=== PATIENT | male | born 1985 | race Caucasian/White ===

== ENCOUNTER 2021-09-12 10:23 | Outpatient (REF) | payer BC, SELFPAY ==
[2021-09-12 11:36] LABS: MANUAL DIFF FLAG NO
[2021-09-12 11:43] LABS: Basophils Percent Auto 0.3 % (0-2); Eosinophils Absolute Auto 0.1 X10*3/uL (0.0-0.4); Eosinophils Percent Auto 2.1 % (0-4); Hematocrit 43.4 % (42.0-52.0); Hemoglobin 15.2 g/dl (14.0-18.0); Imm Gran Abs Auto 0.02 X10*3/uL (0.00-0.03); Imm Gran Pct Auto 0.3 % (0.0-0.4); Lymphocytes Percent Auto 31.1 % (20-40); Mean Corpuscular Hemoglobin 29.7 pg (27.0-33.0); Mean Corpuscular Volume 84.9 fL (80.0-98.0); Mean Platelet Volume 10.4 fL (9.4-12.4); Monocytes Absolute Auto 0.5 X10*3/uL (0.1-1.2); Monocytes Percent Auto 7.6 % (2-11); Neutrophils Absolute Auto 3.7 x10*3/uL (2.0-8.3); Neutrophils Percent Auto 58.6 % (45-73); Platelet Count 170 X10*3/uL (160-400); Red Blood Count 5.11 X10*6/uL (4.60-5.80); Red Cell Distribution Width 12.3 % (11.0-16.0); White Blood Count 6.3 X10*3/uL (4.8-10.8)
[2021-09-12 12:11] LABS: Alanine Aminotransferase 56 U/L (0-40); Albumin Level 4.3 g/dL (3.5-5.0); Alkaline Phosphatase 68 U/L (39-117); Anion Gap 10 (12-20); Aspartate Amino Transferase 30 U/L (5-37); Bilirubin Total 1.3 mg/dL (0.0-1.0); Blood Urea Nitrogen 15 mg/dL (9-16); Calcium 9.4 mg/dL (8.4-10.2); Carbon Dioxide 28 mmol/L (22-29); Chloride 103 mmol/L (96-108); Cholesterol 210 mg/dL; Estimated Glomerular Filt Rate > 60; Glucose Fasting 90 mg/dL (60-99); HDL Cholesterol 36 mg/dL; LDL Cholesterol Calculated 132 mg/dl; Potassium 4.5 mmol/L (3.3-5.1); Sodium 136 mmol/L (135-145); Total Protein 7.1 g/dL (6.5-8.0); Triglycerides 210 mg/dL
[2021-09-12 12:32] LABS: Thyroid Stimulating Hormone 0.77 uIU/mL (0.32-4.0)
[2021-09-16 14:47] LABS: Testosterone, Free 60.8 pg/mL (35.0-155.0); Testosterone, Total 360 ng/dL (250-1100)
== END 2021-09-12 10:24 | disposition home or self-care (01) ==
LOC: HO.HMGCLDS 10:23
PROVIDERS: PCP Internal Medicine; Visit Provider Internal Medicine
DX: Z00.00 Encounter for general adult medical examination without abnormal findings (principal); K58.0 Irritable bowel syndrome with diarrhea; R53.83 Other fatigue
CPT/HCPCS: 36415; 80053; 80061; 84402; 84403; 84443; 85025

== ENCOUNTER → 2022-03-17 08:39 | Outpatient (BNVA) | payer BC, SELFPAY | PROVIDERS: PCP Internal Medicine; Visit Provider Orthopaedic Surgery | DX: G56.02 Carpal tunnel syndrome, left upper limb (principal); R20.0 Anesthesia of skin; R20.2 Paresthesia of skin | CPT/HCPCS: 20526; J1100 ==

== ENCOUNTER 2022-09-10 07:39 | Day surgery (SDC) | payer BC, SELFPAY ==
--- NOTE | 2022-07-01 13:03 | HO.ANESPROP2 ---
HPI - Anesthesia Eval Consult details Narrative: 37yo M for Colonoscopy PMFSH Active Problems Active Problems: All Active Problems (Updated 07/01/22 @ 12:45 by Amparo Ochoa, RN) Carpal tunnel syndrome of left wrist (Acute) Numbness and tingling in right hand (Acute) Past Medical History Medical History (Updated 07/01/22 @ 12:45 by Amparo Ochoa, RN) Anxiety IBS (irritable bowel syndrome) Sleep apnea Surgical History Surgical History (Updated 07/01/22 @ 12:46 by Amparo Ochoa RN) History of tonsillectomy and adenoidectomy Hx of colonoscopy Social History Social History Current occupational status: employed Current occupation: left hand /construction Meds Allergies Allergy/AdvReac Type Severity Reaction Status Date / Time Seasonal Allergies Allergy Mild Itchy Eyes Verified 03/17/22 08:55 Home Medications Medication Instructions Recorded Confirmed Last Taken Type bupropion HCl 150 mg 24 hr tablet, 150 mg PO QAM 03/17/22 Unknown History extended release Exam Exam Date and Time: July 01, 2022 1303 Assessment and Plan Assessment Anesthesia Assessment: Chart Reviewed
--- NOTE | 2022-09-09 12:28 | P.CONAN_ITS ---
Documented by User: Dee Batista NP 09/09/22 12:29 HPI - Anesthesia Eval Consult details Narrative: 37yo M for Colonoscopy [facility] Active Problems Active Problems: All Active Problems (Updated 07/01/22 @ 12:45 by Amparo Ochoa RN) Carpal tunnel syndrome of left wrist (Acute) Numbness and tingling in right hand (Acute) Past Medical History Medical History (Updated 07/01/22 @ 12:45 by Amparo Ochoa RN) Anxiety IBS (irritable bowel syndrome) Sleep apnea Surgical History Surgical History (Updated 07/01/22 @ 12:46 by Amparo Ochoa RN) History of tonsillectomy and adenoidectomy Hx of colonoscopy Social History Social History Advance Directives: No Advance Directives Information Provided: Yes Current occupational status: employed Current occupation: left hand /construction Meds Allergies Allergy/AdvReac Type Severity Reaction Status Date / Time Seasonal Allergies Allergy Mild Itchy Eyes Verified 03/17/22 08:55 Home Medications Medication Instructions Recorded Confirmed Last Taken Type bupropion HCl 300 mg 24 hr tablet, 1 tab PO QAM 09/09/22 09/09/22 Unknown History extended release Exam Exam Date and Time: September 09, 2022 1228 Assessment and Plan Assessment Anesthesia Assessment: Chart Reviewed Documented by User: Arabella Ortiz MD 09/10/22 08:41 [facility] Past Medical History Medical History (Updated 07/01/22 @ 12:45 by Amparo Ochoa RN) Anxiety IBS (irritable bowel syndrome) Sleep apnea Family History Family history of problems with anesthesia: No Surgical History Surgical History (Updated 07/01/22 @ 12:46 by Amparo Ochoa RN) History of tonsillectomy and adenoidectomy Hx of colonoscopy History of Problems with Anesthesia: No Social History Social History Advance Directives: No Advance Directives Information Provided: Yes Current occupational status: employed Current occupation: left hand /construction Meds Allergies Allergy/AdvReac Type Severity Reaction Status Date / Time Seasonal Allergies Allergy Mild Itchy Eyes Verified 03/17/22 08:55 Home Medications Medication Instructions Recorded Confirmed Last Taken Type bupropion HCl 300 mg 24 hr tablet, 1 tab PO QAM 09/09/22 09/09/22 Unknown History extended release Exam Airway Mallampati Class: II TM Dist: >3cm Neck ROM: Full Loose/Missing/Broken Teeth: No Heart: rr Lungs: cta Assessment and Plan Assessment Anesthesia Assessment: Anesthesia Plan Discussed Final Anesthetic Review Family History of Problems with Anesthesia: No History of Problems with Anesthesia: No NPO: Yes ASA Class: III Final Preanesthetic Review: No Changes in Pt Med Stat Patient Risk: Intermediate Procedure Risk: Low Anesthetic Plan Anesthetic Plan: MAC: Disposition: Standard PACU
[2022-09-10 08:33] VITALS: BP 100/63; PULSE 68; RESP 16; TEMP 36.7; O2SAT 97; BMI 30.4
[2022-09-10 09:39] VITALS: BP 105/61; PULSE 71; RESP 20; TEMP 36.3; O2SAT 97
--- NOTE | 2022-09-10 09:42 | P.BOP_ITS ---
Brief Operative Note Date of Service: 09/10/22 Pre-op diagnosis: Diarrhea Post-op diagnosis: other (R/O microscopic colitis) Procedure: Colonoscopy to the cecum and TI with biopsies Surgeon: Edilberto Ladd Anesthesia: MAC Was an Operating System Designer used for this Procedure?: No Estimated blood loss (mL): 2.0 Pathology: other (A. Ascending colon B. Terminal ileum C. Descending colon) Condition: stable Disposition: PACU
[2022-09-10 09:54] VITALS: BP 106/69; PULSE 68; RESP 20; TEMP 36.8; O2SAT 97
--- NOTE | 2022-09-10 11:07 | OP_ITS ---
SURGEON: Edilberto Ladd MD INDICATIONS: The patient presents for evaluation of diarrhea. Full consent has been obtained from him for this, including risks of bleeding and perforation. PREOPERATIVE DIAGNOSIS: Diarrhea. POSTOPERATIVE DIAGNOSIS: PROCEDURE PERFORMED: Colonoscopy to the cecum and terminal ileum with biopsies. ESTIMATED BLOOD LOSS: COMPLICATIONS: ANESTHESIA: Monitored anesthesia care. ASSISTANTS: SPECIMENS: POSTOPERATIVE DIAGNOSES: Diarrhea, rule out microscopic colitis, small internal hemorrhoids. DESCRIPTION OF PROCEDURE: The patient was placed in the left lateral decubitus position. The digital rectal exam revealed no abnormalities. The Olympus video pediatric colonoscope was entered into the rectum and advanced easily to the cecum. Once in the cecum, I did identify a normal-appearing cecal pouch with appendiceal orifice and a normal-appearing ileocecal valve. The terminal ileum was cannulated and appeared normal. Biopsies were obtained. The scope was withdrawn back in the colon. The entire cecum and ileocecal valve appeared normal. The scope was slowly withdrawn assessing all mucosal surfaces carefully. Preparation was excellent. I did not visualize any sign of polyps, colitis, nor angiodysplasia. Random biopsies were obtained in the ascending and descending colon. In the rectum, scope was retroflexed visualizing small internal hemorrhoids, but no other pathology. The rectal mucosa appeared normal. Scope was straightened and withdrawn from the patient. He tolerated the procedure well and was returned to the recovery area in stable condition. IMPRESSION: 1. Rule out microscopic colitis. 2. Small internal hemorrhoids. PLAN: The results of the biopsies will be checked. He has been advised to continue his regimen of the Imodium and dicyclomine for symptomatic relief of the intermittent diarrhea. He was advised to see me again this spring for a followup visit. This has been discussed with his . MD YUNG Trinh/ANA / [id number]
== END 2022-09-10 10:24 | disposition home or self-care (01) ==
PROVIDERS: PCP Internal Medicine; Visit Provider Internal Medicine
PROC: 0DJD8ZZ Inspection of Lower Intestinal Tract, Via Natural or Artificial Opening Endoscopic (ICD-10-PCS; CPT 45378; principal; 2022-09-10 08:30)
DX: K58.0 Irritable bowel syndrome with diarrhea (principal); K64.8 Other hemorrhoids; G47.33 Obstructive sleep apnea (adult) (pediatric); Z79.899 Other long term (current) drug therapy; Z99.89 Dependence on other enabling machines and devices
CPT/HCPCS: 45380; 88305

== ENCOUNTER 2024-03-27 13:47 | Outpatient (AMB) | payer BC, SELFPAY ==
--- NOTE | 2024-03-27 13:59 | AM.OFFWIN_ITS ---
Intake Vital Signs 03/27/24 14:01 Height 5 ft 8 in Weight 211 lb BMI 32.1 BP 106/70 Blood Pressure Location Rt brachial Position Sitting Pulse 68 Pulse Source Pulse Oximeter Temp 98.1 F Temp Source Oral Pulse Oximetry (%) 98 Oxygen Delivery Method Room Air Intake Visit Reasons: EP Vomiting, diarrhea Intake Note: pt is here c/o vomiting and diarrhea. Symptom onset: Friday 03/23. Unable to keep anything down Patient Tobacco Use Status: Former Tobacco user Allergies Seasonal Allergies Allergy (Mild, Verified 03/27/24 13:59) Itchy Eyes Do you need a note to return to daycare/school/sports/work: Yes HPI HPI Comments History of Present Illness Details He presents to office with N/D since Tuesday + chills, body aches, fatigue, nausea, d iarrhea Staying hydrated with electroltes. States can keep down but then vomiting and watery bowel movement No antibiotics No melena or brbpr He denies recent travel or eating out somewhere new No new medicines He states no sick contacts He tried pepto and imodium without relief For work he worked at a [employer] location x 2 weeks [facility] Medical History (Updated 03/27/24 @ 16:32 by Aida Sims PA-C) IBS (irritable bowel syndrome) Sleep apnea Anxiety Surgical History (Updated 07/01/22 @ 12:46 by Amparo Ochoa RN) Hx of colonoscopy History of tonsillectomy and adenoidectomy Social History Patient Tobacco Use Status: Former Tobacco user Current occupational status: employed Current occupation: left hand /construction Review of Systems Const Reports chills, Reports fatigue, Reports night sweats and Reports poor appetite Eyes Denies blurry vision ENT Denies otalgia, Denies nasal discharge and Denies sore throat Card Denies chest pain, Denies syncope, Denies rapid heart rate and Denies dyspnea Resp Denies cough and Denies dyspnea GI Denies abdominal pain (minimal cramping before BM), Denies melena, Denies hematochezia, Denies constipation, Reports diarrhea, Reports nausea, Reports vomiting and Reports other (No hx of diverticulitis or abdominal infection) Denies difficulty urinating Musc Reports myalgias Neuro Denies syncope Endo Reports fatigue Physical Exam Vital Signs: Last Vital Signs Temp 98.1 F 03/27/24 14:01 Pulse 68 03/27/24 14:01 BP 106/70 03/27/24 14:01 Pulse Ox 98 03/27/24 14:01 Oxygen Delivery Method Room Air 03/27/24 14:01 BMI result Body Mass Index 32.1 General: Non-toxic, NAD. Speaking full sentences. Skin: Warm dry throughout Eye: EOMI HENT: Airway patent. Uvula midline. No pharyngeal erythema or edema. 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 Mucosa moist Respiratory: CTA bilaterally. No wheezes, rales or rhonchi Cardiac: RRR. No murmur Abdominal: BS present x 4. Non-tender. No rebound or guarding. No distention MSK: Full ROM extremities. Neurology: A/O. No aphasia or facial droop. Gait without abnormality Psych: Good mood and affect Assessment & Plan Assessment & Plan (1) Diarrhea: Code(s): R19.7 - Diarrhea, unspecified Qualifiers: Diarrhea type: unspecified type Qualified Code(s): R19.7 - Diarrhea, unspecified Plan: Patient seen and evaluated. Abdomen is soft, non-distended and non-tender He was unable to give stool sample sin office Lab will conduct tests for him for culture We discussed diverticulitis symptoms and what symptoms require ER evaluation for further management Will hold on any tx at this time aside from fluids, bowel rest and bland diet Patient gave verbal understanding and had no additional questions or concerns at time of discharge All questions answered Orders: Orders Giardia Ag Stool EIA Today R19.7 - Diarrhea, unspecified GI Panel Today R19.7 - Diarrhea, unspecified CDiff Gene PCR Today R19.7 - Diarrhea, unspecified Coding Level of Care Code Est Pt Level 3 (35405) Diagnoses Diarrhea, unspecified type R19.7 Diarrhea type: unspecified type
[2024-03-27 14:01] VITALS: BP 106/70; PULSE 68; TEMP 36.7; O2SAT 98; BMI 32.1
== END 2024-03-27 14:31 | disposition home or self-care (01) ==
PROVIDERS: PCP Internal Medicine; Visit Provider Physician Assistant
DX: R19.7 Diarrhea, unspecified (principal)
CPT/HCPCS: 99213

== ENCOUNTER 2024-03-28 07:49 | Outpatient (REF) | payer BC, SELFPAY ==
[2024-03-28 12:31] LABS: CDiff Gene PCR NEGATIVE (Negative)
[2024-03-28 13:08] LABS: Adenovirus F 40/41 Not Detected (Not Detect.); Astrovirus Not Detected (Not Detect.); Campylobacter Not Detected (Not Detect.); Cryptosporidium Not Detected (Not Detect.); Cyclospora cayetanensis Not Detected (Not Detect.); E. coli EAEC Not Detected (Not Detect.); E. coli EPEC Not Detected (Not Detect.); E. coli ETEC Not Detected (Not Detect.); E. coli STEC Not Detected (Not Detect.); Entamoeba histolytica Not Detected (Not Detect.); Giardia lamblia Not Detected (Not Detect.); Norovirus GI/GII Not Detected (Not Detect.); Plesiomonas shigelloides Not Detected (Not Detect.); Rotavirus A Detected (Not Detect.); Salmonella Not Detected (Not Detect.); Sapovirus Not Detected (Not Detect.); Shigella sp./EIEC Not Detected (Not Detect.); Vibrio Not Detected (Not Detect.); Vibrio Cholerae Not Detected (Not Detect.); Yersinia enterocolitica Not Detected (Not Detect.)
== END 2024-03-28 07:50 | disposition home or self-care (01) ==
LOC: HO.HMGCLNP 07:49
PROVIDERS: PCP Internal Medicine; Visit Provider Physician Assistant
DX: R19.7 Diarrhea, unspecified (principal)
CPT/HCPCS: 87329; 87493; 87507